=== PATIENT | male | born 1960 | race Caucasian/White ===

== ENCOUNTER → 2017-05-19 | Outpatient (REF) ==
--- NOTE | 2017-05-19 14:30 | Diagnostic Imaging Report ---
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 Heart and mediastinal silhouette are normal in appearance. The lungs are clear except for calcified granuloma in the right midlung. There is no pneumothorax or pleural fluid. IMPRESSION: Calcified granuloma in right midlung. No acute process in the chest. Dictated by: Dictated on workstation # [id number]
== END | disposition home or self-care (01) ==
LOC: OCC 14:08
PROVIDERS: ATTEND Nurse Practitioner Family
CPT/HCPCS: 71020